=== PATIENT | female | born 2000 | race Asian ===

== ENCOUNTER 2023-10-13 15:01 | Outpatient (CLI) | payer OTHER, SELFPAY ==
--- NOTE | 2023-10-13 15:00 | CRLHL7_ITS ---
For Patients: As a result of the Century Cures Act, medical imaging exams and procedure reports are released immediately into your electronic medical record. You may view this report before your referring provider. If you have questions, please contact your health care provider. INDICATION: First trimester scan, establish dates. COMPARISON: None. TECHNIQUE: Real-time max-scale imaging of the pelvis was performed. FINDINGS: Sonographic imaging demonstrates a single living intrauterine gestation. The embryo demonstrates a regular cardiac rate measuring 171 beats per minute. The embryo`s crown-rump length measurement of 2.2 cm corresponds to a gestational age of 8 weeks 6 days with a sonographic due date of 05/18/2024. There is a normal-appearing yolk sac. There are no gross abnormalities noted within the embryo at this early state of development. The gestational sac has a normal appearance. There is no evidence of a perigestational hemorrhage. The amount of fluid within the sac appears appropriate for gestational age. The cervix is closed. The myometrium appears normal. The ovaries are of normal size. Corpus luteal cyst right ovary. There are no suspicious fluid collections noted in the cul-de-sac. IMPRESSION: Normal first trimester OB ultrasound exam. Gestational age calculated at 8 weeks 6 days with a sonographic due date of 05/18/2024. Dictated by Markie Padilla MD @ 10/14/2023 12:08:11 PM (Electronically Signed)
== END 2023-10-13 15:02 | disposition home or self-care (01) ==
LOC: US 15:02
PROVIDERS: Visit Provider Registered Nurse
DX: Z34.91 Encounter for supervision of normal pregnancy, unspecified, first trimester (principal); Z3A.08 8 weeks gestation of pregnancy
CPT/HCPCS: 76817; 86703; 86706; 86803; 86850; 86900; 86901; 87086; 87340; 87491; 87591

== ENCOUNTER 2023-10-13 16:20 | Outpatient (CLI) | payer OTHER, SELFPAY ==
[2023-10-13 23:40] LABS: Chlamydia DNA Amplified* NOT DETECTED (No Detected); GC DNA Amplified* NOT DETECTED (No Detected)
== END 2023-10-13 16:21 | disposition home or self-care (01) ==
PROVIDERS: Visit Provider Registered Nurse
DX: Z34.91 Encounter for supervision of normal pregnancy, unspecified, first trimester (principal); Z3A.09 9 weeks gestation of pregnancy
CPT/HCPCS: 86592; 86703; 86704; 86706; 86762; 86787; 86803; 86850; 86900; 86901; 87086; 87340; 87491; 87591

== ENCOUNTER 2023-12-09 14:03 | Outpatient (CLI) | payer OTHER, MEDICAID, SELFPAY | END 2023-12-09 14:04 | disposition home or self-care (01) | LOC: FRMREF 14:05 | PROVIDERS: Visit Provider Advanced Practice Midwife | DX: Z34.92 Encounter for supervision of normal pregnancy, unspecified, second trimester (principal); Z3A.17 17 weeks gestation of pregnancy | CPT/HCPCS: 81511 ==

== ENCOUNTER 2024-01-04 12:53 | Outpatient (CLI) | payer MEDICAID, SELFPAY ==
--- NOTE | 2024-01-04 13:00 | US_ITS ---
Final Report Patient: BELINDA NAVARRETE Facility:?[facility] Patient ID:?[id number] Site Patient ID:?[id number]. Site :?[id number] Study:?US OB Pelvis BFAS-01/04/2024 1:55:55 PM Ordering Physician:ROZ MURPHY Final Report: INDICATION: Evaluate anatomy. COMPARISON: none TECHNIQUE: Real time max scale imaging of the fetus was performed as well as color Doppler analysis of the umbilical vessels. FINDINGS: Sonographic imaging demonstrates a single living intrauterine gestation. Fetus demonstrates a regular cardiac rate of 147 beats per minute. Fetus has a longitudinal breech position. The placenta lies left-sided without evidence of placenta previa. The placental edge is located 2.1 cm from the internal cervical os. Amniotic fluid volume appears normal. Single deepest vertical pocket: 5.9 cm. The cervix is closed and measures 4.3 cm in length. The composite ultrasound gestational age is calculated at 20 weeks 5 days with an estimated sonographic due date of 05/18/2024. The estimated weight is 368 grams which lies at the 34th %. The following biometric measurements were obtained: Biparietal diameter: 5.0 cm/21 weeks 1 day 61st% Head circumference: 18.1 cm/20 weeks 4 days 26th% Abdominal circumference: 15.5 cm/20 weeks 5 days 37th% Femur length: 3.4 cm/20 weeks 4 days 32nd% The HC/AC ratio measures: 1.17 range (1.06-1.25) On anatomic survey, there is a normal appearance of the cerebral ventricles, cavum septi pellucidi, cisterna magna and cerebellum. The nose, lips, and facial profile appear normal. The cervical, thoracic and lumbar spine are well visualized and appear normal. There is a normal four-chamber heart view and the left and right ventricular outflow tracts appear normal. The diaphragm and stomach appear normal. The kidneys and bladder also appear normal. There is a normal three-vessel cord and there is a marginal cord insertion site into the placenta located 0.9 cm from the placental edge. The four extremities appear normal. IMPRESSION: Concordant of clinical and sonographic dating. No intrinsic abnormalities noted on anatomic survey. Left-sided placenta is present with the placental edge 2.1 cm from the internal cervical os. Marginal cord insertion into the placenta located 9 millimeters from the placental edge. Dictated by Markie Padilla MD @ 01/05/2024 11:13:57 AM (Electronic Signature)
== END 2024-01-04 12:54 | disposition home or self-care (01) ==
LOC: US 12:54
PROVIDERS: Visit Provider Advanced Practice Midwife
DX: Z34.92 Encounter for supervision of normal pregnancy, unspecified, second trimester (principal); Z3A.20 20 weeks gestation of pregnancy
CPT/HCPCS: 76805

== ENCOUNTER 2024-02-17 14:12 | Outpatient (CLI) | payer MEDICAID, SELFPAY | END 2024-02-17 14:13 | disposition home or self-care (01) | LOC: NFLDREF 02-25 12:20 | PROVIDERS: Visit Provider Advanced Practice Midwife | DX: Z34.93 Encounter for supervision of normal pregnancy, unspecified, third trimester (principal) | CPT/HCPCS: 86592 ==

== ENCOUNTER 2024-03-01 16:23 | Outpatient (CLI) | payer MEDICAID, SELFPAY ==
[2024-03-01] VITALS (14 sets, daily range): BP systolic 94–124; BP diastolic 57–61; PULSE 116–171; RESP 15–18; TEMP 36.6–39.4; O2SAT 97–99
--- NOTE | 2024-03-01 16:52 | US_ITS ---
Patient: BELINDA NAVARRETE Facility:?[facility] Patient ID:?[id number] Site Patient ID:?[id number] Site :?2000 Study:?US-OB Pelvis BPP/OB F/U-03/01/2024 7:29:21 PM Ordering Physician:?Krysten Priest Final Report: INDICATION: Abnormal heart rate COMPARISON: 01/04/2024 TECHNIQUE: Grayscale, color Doppler ultrasound of the gravid uterus and fetus from a transabdominal approach. FINDINGS: Currently provided gestational age: 29 weeks and 0 days Intrauterine gestation in a vertex presentation. heart rate is 161 beats per minute and regular. The four-chamber heart, stomach, and bladder all appear normal. Biparietal diameter: 7.51 centimeters Head circumference: 27.9 centimeters Abdominal circumference: 25.9 centimeters Femur length: 5.6 centimeters Composite ultrasound estimated gestational age is 30 weeks and 0 days. Estimated weight is 1474 grams or 3 pounds and 4 ounces. This corresponds to the 71st percentile for age. There is a marginal cord insertion onto the placenta, 2.5 centimeters from the placental edge. The placenta is posterior. No previa. The placental edge is 4.4 centimeters from the cervix. The amniotic fluid volume is normal. The amniotic fluid index is 14.9 centimeters in a single deepest vertical pocket is 4.2 centimeters. breathin/2 movement: 2/2 tone: 2/2 Amniotic Fluid: 2/2 Biophysical profile score: 8/8 Measured transabdominally the maternal cervix measures 4.3 centimeters. IMPRESSION: 1. Intrauterine gestation. No complication seen. heart rate is 161 beats per minute and appears regular. Growth is concordant with dates. 2. Marginal cord insertion 2.5 centimeters from the placental edge. Resolved low lying placenta. No placenta previa. Dictated by Veronica Gonzalez MD @ 03/01/2024 7:36:36 PM Signed by:Lisa Gonzalez MD @03/01/2024 7:36:36 PM (Electronic Signature)
[2024-03-01 17:06] LABS: Appearance Urine Clear (Clear); Bilirubin Urine Negative (Negative); Blood Urine Trace-intact (Negative); Color Urine Amber (Yellow); Glucose Urine Trace (Negative); Ketones Urine 1+ (Negative); Leukocyte Esterase Urine Negative (Negative); Nitrite Urine Negative (Negative); Protein Urine 1+ (Negative); Specific Gravity Urine >= 1.030 (1.000-1.030); Urobilinogen Urine 0.2 (0.2-1.0)
[2024-03-01 17:17] LABS: RBC Urine 0-2 (0-2)
[2024-03-01 17:18] LABS: Bacteria Urine Moderate; Mucus Urine Many; Squamous Epithelial Cell Urine Few (None-Few)
[2024-03-01] MEDS: LACTATED RINGERS 1000 ML IV (17:40)
[2024-03-01 18:06] LABS: PCR FLU A Negative PCR FLU A (Negative); PCR FLU B Negative PCR FLU B (Negative); PCR RSV Negative PCR RSV (Negative); SARS PCR* Negative SARS-CoV-2 (Negative)
[2024-03-01 18:06] LABS: Basophils Percent Auto 0.1 % (0.0-3.0); Hematocrit 35.7 % (33.0-51.0); Hemoglobin* 10.9 gm/dL (12.0-16.0); Immature Granulocytes Pct Auto 0.3 %; Lymphocytes Percent Auto 5.5 % (20-44); Mean Corpuscular HGB Conc 31 gm/dL (32-36); Mean Corpuscular Hemoglobin 24 pg (26-34); Mean Corpuscular Volume 78 fL (80-100); Monocytes Percent Auto 3.3 % (0.0-11.0); Neutrophils Percent Auto 90.8 % (42.0-72.0); Platelet Count* 225 K/uL (140-440); RDW Coefficient of Variation % 14.9 % (11.5-15.5); Red Blood Count 4.56 m/uL (4.00-5.20); White Blood Count* 15.62 K/uL (4.50-11.00)
[2024-03-01 18:11] LABS: Slide Review Reflex No
[2024-03-01] MEDS: ACETAMINOPHEN 500 MG TABLET 1000 MG PO (18:19)
[2024-03-01 19:06] LABS: Amphetamine Screen Urine Negative (Negative); Barbiturate Screen Urine Negative (Negative); Benzodiazepines Screen Urine Negative (Negative); Cannabinoid Screen Urine Negative (Negative); Cocaine Screen Urine Negative (Negative); Methadone Screen Urine Negative (Negative); Methamphetamines Screen Urine Negative (Negative); Opiate Screen Urine Negative (Negative); Oxycodone Screen Urine Negative (Negative); Phencyclidine Screen Urine Negative (Negative); Tricyclic Antidepressant Urine Negative (Negative)
--- NOTE | 2024-03-01 19:46 | PM.OBHPAP1 ---
OB - H&P; HPI Antepartum History of Present Illness Date Seen: 03/01/24 Chief complaint: Maternity Narrative: Arti Wallis is a 23 year old at 29 0/7 weeks gestation that presents today for sore throat, chills, body aches, and fever. She reports that it started earlier today. She called to triage and they recommended evaluation. She denies any exposure to illness or other family with any at thi time. She denies any cough, SOB, nauesea, vomiting, or diarrhea. She does report a sore throat. She has had minimal to eat/drink today. She reports she had some broth earlier today. On arrival to triage, she was flushed and had a low grade fever. She endorses chills with hot flashes and body aches. She was given 1 L of fluid in triage. She reports she was feeling a little better following this. Tylenol given for documented temperature of 103.0. Specific Issues/Plans G 2 P 1001 Does not want to know sex 1. Closely spaced pregnancies. Vaginal delivery 01/12/2023. 2. Depression and anxiety. Stopped taking sertraline a couple of months ago. Does not desire to restart medication at this time. Feels that her mood is stable despite elevated PHQ and ДМИТРИЙ scores. Continues to see a therapist. Encouraged her to let us know if her mood symptoms are worsening. 3. Marginal cord insertion 0.9 cm from placental edge with placenta along the left wall and 2.1 cm from the internal os at 20 weeks. Repeat US for growth and reassessment of placenta at 28 weeks: ordered for 30 weeks 4. Anemia. Hgb 10.2 at 27 weeks. Portal message sent to start PO iron. Flu: Recommended. Declines Covid: Recommended booster. Patient declines. Review of Systems Const: Reports: fever, chills, fatigue and night sweats ENMT: Reports: throat pain Cardio: Reports: palpitations; Denies: chest pain or shortness of breath with exertion Resp: Denies: shortness of breath or cough GI: Denies: abdominal pain, nausea or vomiting : Denies: blood in urine, difficulty voiding, pelvic pain or vaginal bleeding Musculo: Denies: back pain Endo: Reports: fatigue Meds Home Medications and Allergies Home Medications Medication Instructions Recorded Confirmed Type docosahexaenoic acid 200 mg mg PO 10/13/23 02/17/24 History capsule ( DHA) Allergies Allergy/AdvReac Type Severity Reaction Status Date / Time No Known Drug Allergies Allergy Verified 02/17/24 13:16 OB - H&P: Exam Physical Exam: Vital signs: Temp Pulse Resp BP Pulse Ox 102.7 F H 153 H 15 124/57 L 97 03/01/24 18:59 03/01/24 16:44 03/01/24 16:44 03/01/24 16:44 03/01/24 19:17 Narrative: Vitals Reviewed Constitutional:? Alert and oriented x3. Flushed HEENT:? Normocephalic, atraumatic Neck:? Supple Lungs:? Clear to auscultation bilaterally Heart:? Tachycardia with Regular rhythm, no murmur, rub or gallop Abdomen:? Soft, nontender, and gravid. Extremities:? No edema or erythema NST: 185 bpm/moderate variability/15x15 accelerations/no decelerations/absent contractions BPP: 8/8, reported EFW 70%ile. EKG: Sinus Tachycardia Constitutional: Constitutional: mild distress OB - Results Labs Labs: Short CBC 03/01/24 Range/Units 17:12 WBC 15.62 H (4.50-11.00) K/uL Hgb 10.9 L (12.0-16.0) gm/dL Hct 35.7 (33.0-51.0) % Plt Count 225 (140-440) K/uL Urine 03/01/24 Range/Units 16:46 Urine Color Aria A (Yellow) Urine Appearance Clear (Clear) Urine pH 6.0 (5.0-8.5) Ur Specific Dailey >= 1.030 (1.000-1.030) Urine Protein 1+ A (Negative) Urine Glucose (UA) Trace A (Negative) OB - A/P Antepartum Assessment and Plan (1) Fever of unknown origin: Status: Acute (2) 29 weeks gestation of : Status: Acute (3) Dehydration: Status: Acute (4) Marginal insertion of umbilical cord: Status: Acute (5) Tachycardia: Status: Acute (6) Antepartum tachycardia affecting care of mother: Status: Acute Plan at 29 0/7 weeks gestation Fever of unknown origin Dehydration Marginal cord insertion Maternal Tachycardia with Tachycardia, BPP 8/8. Admit for overnight observation. Discussed plan of care with Dr. Mims. Reviewed laboratory testing, EKG, BPP, and NST. Discussed recommendation of observation until morning with IV fluids and Tylenol overnight. Dr. Mims agrees with plan. NST at midnight, if FHR is elevated but reassuring, do another NST in am. Call with otherwise abnormal NST findings. CBC to repeat at midnight. CMP labs pending. Will call abnormal results to Dr. Mims. Flu/Covid/RSV and Strep lab all negative. Monitor vitals per protocol, every 4 hours. IV fluids, LR, 125 ml per hour. Bolus of 1,500 given in triage. Will review patient status in am, goal of discharge after rehydration and control of fever.
[2024-03-01 19:48] LABS: Strep A DNA Probe* NOT DETECTED (Not Detectd)
[2024-03-01] MEDS: LACTATED RINGERS 1000 ML 1,000 ML 125 ML IV ×2 (20:23→23:38)
[2024-03-01 20:36] LABS: Albumin* 3.3 g/dL (3.3-5.0); Chloride* 110 mmol/L (96-114); Potassium* 3.7 mmol/L (3.6-5.1); Sodium* 135 mmol/L (135-149)
[2024-03-01 20:38] LABS: Creatinine* 0.4 mg/dL (0.5-1.5); Estimated Glomerular Filt Rate 143 ml/min
[2024-03-01 20:39] LABS: Alanine Aminotransferase* 13 U/L (4-35); Alkaline Phosphatase* 102 U/L (40-150); Anion Gap 5 mEq/L (7-15); Aspartate Amino Transferase* 19 U/L (12-35); Bilirubin Total* 0.4 mg/dL (0.1-1.5); Blood Urea Nitrogen* 5 mg/dL (5-24); Carbon Dioxide* 20 mmol/L (20-32); Glucose* 86 mg/dL (60-115); Total Protein* 6.8 g/dL (6.0-8.3)
[2024-03-01 20:40] LABS: Calcium* 8.4 mg/dL (8.4-10.6)
[2024-03-02] VITALS (76 sets, daily range): BP systolic 65–109; BP diastolic 37–65; PULSE 77–120; RESP 16–18; TEMP 35.6–37.3; O2SAT 90–100
[2024-03-02] MEDS: ACETAMINOPHEN 500 MG TABLET 1000 MG PO ×2 (00:06→15:05)
[2024-03-02 01:06] LABS: Basophils Percent Auto 0.1 % (0.0-3.0); Hematocrit 28.7 % (33.0-51.0); Hemoglobin* 8.8 gm/dL (12.0-16.0); Immature Granulocytes Pct Auto 0.7 %; Lymphocytes Percent Auto 6.2 % (20-44); Mean Corpuscular HGB Conc 31 gm/dL (32-36); Mean Corpuscular Hemoglobin 24 pg (26-34); Mean Corpuscular Volume 79 fL (80-100); Monocytes Percent Auto 6.5 % (0.0-11.0); Neutrophils Percent Auto 86.5 % (42.0-72.0); Platelet Count* 190 K/uL (140-440); RDW Coefficient of Variation % 15.1 % (11.5-15.5); Red Blood Count 3.64 m/uL (4.00-5.20); White Blood Count* 22.65 K/uL (4.50-11.00)
[2024-03-02 01:09] LABS: Slide Review Reflex No
--- NOTE | 2024-03-02 07:08 | PC.OBNST ---
NST Note NST Note Start: 03/01/24 16:27 Freq: ONCE Status: Active Protocol: Document 03/02/24 00:26 [facility] (Rec: 03/02/24 07:08 [facility] [id number]) NST Note 2 Para (# of births) 1 EDC 05/17/24 Gestational Age In Weeks & Days 29 Weeks & 1 Days Patient Presented with Complaint(s) of Other Other Complaints Fever, chills, body aches, sore throat Reactive Yes Appropriate for Gestational Age Yes MARIOLA Marin, RN Date 03/02/24 Reactive Yes Appropriate for Gestational Age Yes MARIOLA Ballesteros RN Date 03/02/24 OB NST charge Yes Complete NST Note via Write Note Yes The provider's electronic signature indicates the NST is reactive/appropriate for gestational age. *Note to provider: If an addendum is required, open the patient's chart and click on the note under the Nurse/Allied Health tab.
--- NOTE | 2024-03-02 07:50 | XR_ITS ---
Patient: BELINDA NAVARRETE Facility:?[facility] Patient ID:?[id number] Site Patient ID:?[id number]. Site :?2000 Study:?XRay-Chest 2 view-03/02/2024 9:18:29 AM Ordering Physician:?Lina Calero Final Report: Indication: Leukocytosis and fever of unknown origin. Technique: Chest 2 views Comparison: None Findings/Impression: Cardiovascular and mediastinum: Heart size and vasculature are normal in caliber and appearance. Mediastinum is within normal limits. Lungs and pleural spaces: Lungs are clear. No sign of infiltrate or mass. No sign of pleural effusion. No pneumothorax. Bones and soft tissues: No significant findings. Dictated by Florentin Deal MD @ 03/02/2024 9:22:01 AM Signed by:?Florentin Deal MD @03/02/2024 9:22:01 AM (Electronic Signature)
[2024-03-02 08:05] LABS: Basophils Percent Auto 0.1 % (0.0-3.0); Hematocrit 29.3 % (33.0-51.0); Hemoglobin* 8.9 gm/dL (12.0-16.0); Immature Granulocytes Pct Auto 0.6 %; Mean Corpuscular HGB Conc 30 gm/dL (32-36); Mean Corpuscular Hemoglobin 24 pg (26-34); Mean Corpuscular Volume 79 fL (80-100); Monocytes Percent Auto 4.2 % (0.0-11.0); Neutrophils Percent Auto 87.1 % (42.0-72.0); Platelet Count* 192 K/uL (140-440); RDW Coefficient of Variation % 15.2 % (11.5-15.5); Red Blood Count 3.69 m/uL (4.00-5.20); White Blood Count* 21.22 K/uL (4.50-11.00)
[2024-03-02 08:17] LABS: Slide Review Reflex No
[2024-03-02 08:21] LABS: Albumin* 2.9 g/dL (3.3-5.0); Chloride* 106 mmol/L (96-114); Sodium* 136 mmol/L (135-149)
[2024-03-02 08:22] LABS: Potassium* 3.2 mmol/L (3.6-5.1)
[2024-03-02 08:24] LABS: Alanine Aminotransferase* 11 U/L (4-35); Alkaline Phosphatase* 88 U/L (40-150); Anion Gap 7 mEq/L (7-15); Aspartate Amino Transferase* 17 U/L (12-35); Bilirubin Total* 0.3 mg/dL (0.1-1.5); Blood Urea Nitrogen* 3 mg/dL (5-24); Calcium* 8.5 mg/dL (8.4-10.6); Carbon Dioxide* 23 mmol/L (20-32); Creatinine* 0.3 mg/dL (0.5-1.5); Estimated Glomerular Filt Rate 153 ml/min; Glucose* 91 mg/dL (60-115); Total Protein* 6.3 g/dL (6.0-8.3)
--- NOTE | 2024-03-02 09:30 | US_ITS ---
Patient: BELINDA NAVARRETE Facility:?[facility] Patient ID:?[id number] Site Patient ID:?[id number]. Site :?2000 Study:?US-Abdomen Abdomen Complete-03/02/2024 11:42:14 AM Ordering Physician:?Krysten Priest Final Report: INDICATION: Leukocytosis, TECHNIQUE: Ultrasound abdomen complete. Sonographic images of the entire abdomen were obtained using max-scale and color Doppler. COMPARISON: None. FINDINGS: Liver: Normal in size and echotexture. No masses. No intrahepatic biliary dilatation. Gallbladder: No stones or sludge. Normal wall thickness. No pericholecystic fluid. Common bile duct: 4 mm. Pancreas: Partially obscured by bowel gas without discrete abnormality. Spleen: Upper normal size, likely secondary to . No focal lesions. Kidneys: Mild maternal right hydronephrosis. Left kidney unremarkable. Vasculature: Proximal abdominal aorta and IVC are normal in caliber. Scanning in the right lower quadrant shows only shadowing bowel gas. IMPRESSION: 1. Appendix not seen. Only shadowing bowel gas identified in the right lower quadrant. 2. Mild maternal right hydronephrosis, likely secondary to . 3. Otherwise unremarkable abdominal ultrasound. Dictated by Florentin Deal MD @ 03/02/2024 11:57:51 AM Signed by:?Florentin Deal MD @03/02/2024 11:57:51 AM (Electronic Signature)
--- NOTE | 2024-03-02 09:30 | US_ITS ---
Patient: BELINDA NAVARRETE Facility:?[facility] Patient ID:?[id number] Site Patient ID:?[id number]. Site :?2000 Study:?US-OB Pelvis OB F/U-03/02/2024 11:39:20 AM Ordering Physician:?Krysten Priest Final Report: INDICATION: Leukocytosis, possible abruption TECHNIQUE: Ultrasound OB pelvis transabdominal. Real-time max-scale imaging of the fetus was performed with static images saved for review. COMPARISON: Obstetric ultrasound 03/01/2024 FINDINGS: Clinical Age: 29 weeks 1 day (ROMY 05/17/2024) Single live intrauterine gestation in vertex position with a heart rate of 125 beats per minute. Posterior placenta without perigestational bleed. Amniotic fluid is normal with a maximum vertical pocket of 4.2 centimeters. No placenta previa seen. IMPRESSION: 1. Single live intrauterine gestation with a clinical age of 29 weeks 1 day in vertex position. 2. Posterior placenta without placenta previa or perigestational bleed. 3. Normal amniotic fluid. Dictated by Florentin Deal MD @ 03/02/2024 11:54:46 AM Signed by:?Florentin Deal MD @03/02/2024 11:54:46 AM (Electronic Signature)
[2024-03-02 10:28] LABS: Clue Cells No Clue Cells Seen (None Seen); Trichomonas No Trichomonas Seen (None Seen); Yeast No Yeast Seen (None Seen)
--- NOTE | 2024-03-02 10:28 | P.OBPN_ITS ---
Subjective Time Seen by Provider: 09:10 Date Seen: 03/02/24 Narrative: Delayed documentation due to patient care and patient being off the floor intermittently for imaging studies. Arti is a 23-year-old at 29 weeks 1 day gestation admitted for fever and myalgias history thing. Please see Dr. Priest and Veronica Trejo' admission note for complete details. Briefly, patient has been experiencing intermittent fevers chills at home since the evening of 02/28/24. She notes associated myalgia, runny nose and intermittent headache. She additionally noted intermittent low abdominal cramping that resolved prior to presentation to triage. None of these were particularly concerning to her, and would not typically have prompted her to present to care. She spiked a fever the evening of 03/01 to Tmax of 103. She had significant maternal and tachycardia, VS were otherwise WNL. Fever responded to tylenol and IVF hydration, where maternal tachycardia resolved. WBC was noted to be elevated to 15 with neutrophil predominance. Flu, COVID, RSV, strep all negative. UA showed contamination but was not concerning for UTI. US was unremarkable, 8/8 BPP. She noted feeling subjectively much improved overnight. Repeat labs demonstrated worsening leukocytosis with a downtrending Hgb, where she was reassess by Dr. Priest and decision was made to proceed with abdominal US to rule out appendicitis, cholecystitis and to reassess placenta to rule out concealed abruption. NST at 0000 was appropriate for GA with resolution of tachycardia. This morning, Arti is feeling much better. She denies any ongoing fevers/chills, rigors or myalgias. She notes no abdominal pain, cramping or contractions, vaginal bleeding or leaking of fluids. Endorses active movement. No headache, sore throat, neck stiffness, dizziness/lightheadedness, fevers/chills, chest pain, dyspnea, cough, nausea, vomiting, diarrhea, constipation, dysuria, urinary urgency/frequency, abnormal vaginal discharge, abdominal pain or tenderness, contractions, vaginal bleeding, or leaking of fluids today. Objective Exam: General: Alert and oriented, in no acute distress. Resting in hospital bed. Heart: Regular rate and rhythm, no rubs murmurs or gallops Lungs: Clear to posterior auscultation throughout, no wheezes, rales or crackles Abdomen: Gravid. Otherwise soft and nondistended. Uterus palpates soft, no fundal tenderness. No tenderness to palpation throughout all 4 abdominal quadrants, no rebound or guarding. Pelvic: External genital exam within normal limits. Perineum dry. Speculum inserted, vaginal mucosa is pale pink and cervix appears unremarkable and closed. Moderate volume of thin, opaque white discharge noted consistent with physiologic discharge of . No purulence or malodor appreciated. Wet prep specimen obtained. Bimanual exam performed, no cervical motion tenderness, uterine tenderness or adnexal tenderness. heart rate: Baseline 110bpm, moderate variability, 10x10 accels present with no decelerations. Continue continuous monitoring. Vital Signs: Last Vital Signs Temp 96.4 F L 03/02/24 07:58 Pulse 80 03/02/24 07:49 Resp 18 03/02/24 07:58 BP 93/50 L 03/02/24 07:49 Pulse Ox 100 03/02/24 09:43 Plan Plan: Ms. Wallis is a 23yo at 29w1d GA ongoing evaluation of fever of unknown origin. Infectious testing to present has been negative. VS notable for Tmax of 103 yesterday evening, with new hypothermia to 96.0 degrees since 0300. Stat repeat CBC with diff and CMP are stable - with WBC of 21, neutrophil predominance, stable Hgb and normal Cr/LFTs. Infectious evaluation to present has been negative. This includes: RSV, COVID, Flu, strep testing, UA via clean catch and Ob US. Plan to proceed with chest x- ray repeat UA/UC via catheterized specimen this morning. She is scheduled to go down for abdominal US and repeat Ob US this morning. Of note, my clinical suspicion for chorioamnionitis is very low. She has absolutely no abdominal pain or tenderness. Speculum exam performed, wet prep pending. No cervical motion, uterine or adnexal tenderness to palpation. No signs/symptoms of acute abdomen. Continuous monitoring is ongoing. Disposition is to remain inpatient. Plan to discuss case further with MFM (via [facility] for U line) pending results.
[2024-03-02] MEDS: LACTATED RINGERS 1000 ML 1,000 ML IV (12:14)
[2024-03-02] MEDS: PIPERACILLIN/TAZOBACTAM 3.375 GM in 0.9 % SODIUM CHLORIDE Mini-bag 100 ML IVPB (12:45)
[2024-03-02 12:53] LABS: Lab Add On Test New Spec Needed
[2024-03-02 13:02] LABS: Appearance Urine Clear (Clear); Bilirubin Urine Negative (Negative); Blood Urine Negative (Negative); Color Urine Yellow (Yellow); Glucose Urine Negative (Negative); Ketones Urine 4+ (Negative); Leukocyte Esterase Urine Negative (Negative); Nitrite Urine Negative (Negative); Protein Urine Negative (Negative); Urobilinogen Urine 0.2 (0.2-1.0)
[2024-03-02 13:16] LABS: RBC Urine 0-2 (0-2)
--- NOTE | 2024-03-02 13:18 | P.OBPN_ITS ---
Subjective Time Seen by Provider: 11:40 Date Seen: 03/02/24 Narrative: Delayed documentation due to patient care. Ms. Wallis is a 23yo at 29w1d GA ongoing evaluation of fever of unknown origin. Infectious testing to present has been negative. VS notable for Tmax of 103 yesterday evening, with new hypothermia to 96.0 degrees since 0300. Stat repeat CBC with diff and CMP are stable - with WBC of 21, neutrophil predominance, stable Hgb and normal Cr/LFTs. After arriving back to the unit from radiology, repeat VS demonstrate new hypotension. This was repeated stat by bedside RN and confirmed. I presented emergently to the bedside. Verbal orders for stat bolus of 2 L of LR given, plan to start zosyn for empiric treatment of sepsis. Blood and urine cultures were obtained this morning, prior to initiation of antibiotics. On arrival, Arti continues to feel well. She denies dizziness/lightheadedness, nausea/vomiting, chest pain, dyspnea, fevers/chills. Comprehensive ROS completed and all remains negative. Expressed my concern for evolving sepsis of an unclear source. Plan to proceed with Hospitalist consultation to see if they can elicit any potential unexplored sources. In addition, I explained plan to transfer Arti to a higher level of care for potential maternal ICU and NICU care. Explained we first must stabilize her blood pressure, but that we will start to initiate this process. Objective Exam: General: Alert and oriented, seen lying back in hospital bed. Abdomen: Gravid. Otherwise soft, non-tender and non-distended. No rebound or guarding. Extremities: Cool feet, distal extremities are otherwise pink and well perfused. NST: status is reassuring for GA. Baseline is 130bpm, moderate variability, accelerations present and no decelerations. Vital Signs: Last Vital Signs Temp 98.4 F 03/02/24 13:15 Pulse 94 03/02/24 13:10 Resp 18 03/02/24 13:15 BP 82/43 L 03/02/24 13:10 Pulse Ox 100 03/02/24 13:16 Plan Plan: Ms. Wallis is a 23yo at 29w1d GA admitted for fever of unknown origin with worsening maternal condition consistent with sepsis. Infectious testing to present has been negative, blood cultures and urine cultures pending. CXR and abdominal US are negative for apparent infectious pathology, appendix was not visualized. - Fluid resuscitation with 2L of LR bolus is ongoing, zosyn initiated for broad spectrum antibiotic coverage. Vancomycin was considered for MRSA coverage, mutually agreed to hold off given low suspicion after consultation with hospitalist. - Plan to continue BP checks q5m until we achieve a MAP goal of >=65mmHg. If she fails to respond to fluid bolus, plan is to initiate norepinephrine infusion with Dr. Arreola co-managing given need for critical care support. - Continuous monitoring ongoing and is fortunately reassuring - s/p BMZ #1 - Plan to start process of transfer to a facility with ICU and NICU capabilities. Ultimately, [facility] and [facility] were contacted and unable to accept due to critical patient status and NICU capacity respectively. [facility] was contacted and accepted transfer. Please see subsequent transfer note.
[2024-03-02 13:19] LABS: Lactate* 1.8 mmol/L (0.5-1.9)
[2024-03-02] MEDS: LACTATED RINGERS 1000 ML 1,000 ML 1200 ML IV (13:20)
[2024-03-02 13:21] LABS: Squamous Epithelial Cell Urine Few (None-Few)
[2024-03-02 13:22] LABS: Mucus Urine Few
[2024-03-02] MEDS: BETAMETHASONE SOD PHOS/ACETATE 6 MG/ML ML 12 MG IM (13:56)
--- NOTE | 2024-03-02 14:27 | W.PM.OBTRAN ---
History of Present Illness History of Present Illness Time Seen by Provider: 14:47 Date Seen: 03/02/24 History of Present Illness: Delayed documentation due to patient care. Arti Wallis is a 23-year-old at 29 weeks 1 day gestation admitted for fever and myalgias. Please see Dr. Priest and Veronica Trejo' ([facility]) admission note for complete details. is complicated by anemia (Hgb 10.2), marginal cord insertion and maternal mood disorder (depression/anxiety). She has a history of anemia, on oral iron. Briefly, patient has been experiencing intermittent fevers chills at home since the evening of 02/28/24. She notes associated myalgia, runny nose and dry throat. She additionally noted intermittent low abdominal cramping on 02/28, resolved prior to presentation to care. None of these were particularly concerning to her, and would not typically have prompted her to present to care. She called nurse triage yesterday afternoon, reporting subjective fever and rigors. She took Tylenol prior to presentation. On arrival, she was normotensive but tachycardic to the 150s. tachycardia was noted to with baseline of 180 beats per minute with moderate variability and no decelerations. During her evaluation, she spiked a fever to 103? F at 1819. Fever broke with IV fluids and Tylenol, where maternal tachycardia resolved. UA was obtained, notable for contamination but negative for white blood cells. Her white blood cell count was noted to be 15.6 with a neutrophil predominant, remainder of labs were within normal limits. OB ultrasound was obtained, with EFW [id number] at the 73%ile. 8/8 BPP. Patient noted subjective improvement of symptoms and was monitored overnight. Repeat NST at approximately midnight showed baseline of 120 beats per minute, moderate variability, accelerations present decelerations absent. Repeat white blood cell count at that time showed a significant rise to 22.6 (19.6 neutrophils) with a downtrending hemoglobin of 8.8 (from 10.9, thought to be dilutional). She had intermittent maternal tachycardia overnight. Starting at about 0300, she had new hypothermia with several temperatures of 96?F. She had mild hypotension without tachycardia at time of my rounding - 93/50mmHg and 80bpm respectively. Patient was well-appearing, and from the above history. She specifically denies any headache, sore throat, neck stiffness, dizziness/lightheadedness, fevers/chills, chest pain, dyspnea, cough, nausea, vomiting, diarrhea, constipation, dysuria, urinary urgency/frequency, abnormal vaginal discharge, abdominal pain or tenderness, contractions, vaginal bleeding, or leaking of fluids today. Review of systems for the last few days are negative except as noted above. She endorses active movement. Plan established overnight was to proceed with repeat OB ultrasound to rule out a concealed abruption, and abdominal ultrasound. These were subsequently found to be normal. I obtained a chest x-ray, repeat UA/UC via straight catheter and blood cultures to continue infectious workup. I completed a thorough physical exam, noted below but was entirely within normal limits. I put her on continuous monitoring, and this time her baseline was 110 beats per minute with moderate variability and 10 x 10 accelerations present with no decelerations. At 1138 she returned from an imaging study, where blood pressure was noted to be 65/41 with a recheck of 73/49. Patient was noted to be mentating appropriately, with no dizziness/lightheadedness, fevers or chills. Repeat physical exam was performed and was within normal limits. We considered a very broad infectious differential, importantly with no evidence of chorioamnionitis on my exam. 2 L of IV LR were infused as a bolus, Zosyn was started for empiric management of sepsis. Hospitalist was consulted for further evaluation of potential source. We developed a plan for norepinephrine infusion for a goal MAP >= 65. Continuos monitoring was ongoing and entirely reassuring - baseline 130bpm with moderate variability, accelerations present and decelerations absent. She was administered betamethasone at approximately 1330. I called several facilities to facilitate transfer of care for potential maternal ICU availability and NICU capacity. Ultimately, [facility] in [place] accepted her transfer. We mutually agreed to withhold magnesium sulfate for neuro protection given tenuous maternal condition. We discussed a goal map of greater than or equal to 65 in route, plan to start norepinephrine infusion if needed. Flight crew will notify [facility] and our facility if this is required. Meds Home Medications and Allergies Home Medications Medication Instructions Recorded Confirmed Type docosahexaenoic acid 200 mg mg PO 10/13/23 02/17/24 History capsule ( DHA) Allergies Allergy/AdvReac Type Severity Reaction Status Date / Time No Known Drug Allergies Allergy Verified 02/17/24 13:16 [facility] Medical History (Updated 03/02/24 @ 14:50 by Lina Calero MD) Hx of iron deficiency anemia ?Z86.2 - Personal history of diseases of the blood and blood-forming organs and certain disorders involving the immune mechanism (ICD-10) Anemia ?D64.9 - Anemia, unspecified (ICD-10) Vaginal delivery ?O80 - Encounter for full-term uncomplicated delivery (ICD-10) Social History Smoking Status: Never smoker Little interest or pleasure in doing things: more than half the days Feeling down, depressed, or hopeless: more than half the days History History 2 Elective abortions Para 1 Spontaneous abortions Hx # Term Pregnancies 1 Ectopic pregnancies Hx # Pregnancies Multiple births Number of Living Children 0 Past Pregnancies Del. Date GA/Weeks Outcome Route wt Inf Gender Labor Lgth Anesthesia Location Provider Compli 01/12/23 40 live - full term vaginal delivery 7 lb 9 oz Female 9 hrs epidural [facility] Delivery Date: 01/12/23 Last Updated by: Kayla García ~ [employer] CLERK, [employer] [facility]+ and [facility] - H&P: Exam Physical Exam Vital signs: Temp Pulse Resp BP Pulse Ox 98.4 F 115 H 18 104/58 L 100 03/02/24 13:15 03/02/24 14:22 03/02/24 13:15 03/02/24 14:22 03/02/24 14:24 Narrative: General: Alert and oriented, in no acute distress. Seen reclining in hospital bed, flushed cheeks. Neck: No nuchal rigidity Heart: Regular rate and rhythm, no rubs murmurs or gallops Lungs: Clear to posterior auscultation throughout, no wheezes, rales or crackles Abdomen: Gravid. Otherwise soft and nondistended. Uterus palpates soft, no fundal tenderness. No tenderness to palpation throughout all 4 abdominal quadrants, no rebound or guarding. Pelvic: External genital exam within normal limits. Perineum dry. Speculum inserted, vaginal mucosa is pale pink and cervix appears unremarkable and closed. Moderate volume of thin, opaque white discharge noted consistent with physiologic discharge of . No purulence or malodor appreciated. Wet prep specimen obtained. Bimanual exam performed, no cervical motion tenderness, uterine tenderness or adnexal tenderness. Results Labs Laboratory Tests 03/02/24 03/02/24 03/02/24 Range/Units 13:14 12:50 12:40 WBC (4.50-11.00) K/uL RBC (4.00-5.20) m/uL Hgb (12.0-16.0) gm/dL Hct (33.0-51.0) % MCV (80-100) fL MCH (26-34) pg MCHC (32-36) gm/dL RDW Coeff of Sathya (11.5-15.5) % Plt Count (140-440) K/uL Neut % (Auto) (42.0-72.0) % Lymph % (Auto) (20-44) % [place] % (Auto) (0.0-11.0) % Eos % (Auto) (0.0-7.0) % Baso % (Auto) (0.0-3.0) % Neut # (Auto) (1.7-7.0) K/uL Lymph # (Auto) (0.90-2.90) K/uL [place] # (Auto) (0.00-0.90) K/UL Eos # (Auto) (0.00-0.50) K/uL Baso # (Auto) (0.00-0.30) K/uL Abs Immat Gran (auto) (0.00-0.30) K/uL Imm/Tot Granulo (auto) % Sodium (135-149) mmol/L Potassium (3.6-5.1) mmol/L Chloride (96-114) mmol/L Carbon Dioxide (20-32) mmol/L Anion Gap (7-15) mEq/L BUN (5-24) mg/dL Creatinine (0.5-1.5) mg/dL Estimated GFR ml/min Glucose (60-115) mg/dL Lactate 1.8 (0.5-1.9) mmol/L Calcium (8.4-10.6) mg/dL Total Bilirubin (0.1-1.5) mg/dL AST (12-35) U/L ALT (4-35) U/L Alkaline Phosphatase (40-150) U/L Total Protein (6.0-8.3) g/dL Albumin (3.3-5.0) g/dL Urine Color Yellow (Yellow) Urine Appearance Clear (Clear) Urine pH 6.0 (5.0-8.5) Ur Specific [place] 1.020 (1.000-1.030) Urine Protein Negative (Negative) Urine Glucose (UA) Negative (Negative) Urine Ketones 4+ A (Negative) Urine Blood Negative (Negative) Urine Nitrite Negative (Negative) Urine Bilirubin Negative (Negative) Urine Urobilinogen 0.2 (0.2-1.0) Ur Leukocyte Esterase Negative (Negative) Urine RBC 0-2 (0-2) Urine WBC 5-10 A (0-5) Ur Squamous Epith Cells Few (None-Few) Urine Bacteria None (None) Urine Mucus Few A (None) Vaginal Trichomonas (None Seen) Vaginal Yeast (None Seen) Vaginal Clue Cells (None Seen) Urine Opiates Screen (Negative) Ur Oxycodone Screen (Negative) Urine Methadone Screen (Negative) Ur Barbiturates Screen (Negative) U Tricyclic Antidepress (Negative) Ur Phencyclidine Scrn (Negative) Ur Amphetamines Screen (Negative) U Methamphetamines Scrn (Negative) U Benzodiazepines Scrn (Negative) Urine Cocaine Screen (Negative) U Marijuana (THC) Screen (Negative) Ur Drug Screen Comment SARS-CoV-2 (PCR) (Negative) Influenza Type A (PCR) (Negative) Influenza Type B (PCR) (Negative) RSV (PCR) (Negative) Group A Strep DNA (Not Detectd) Lab Acknowledgement New Spec Needed 03/02/24 03/02/24 03/02/24 Range/Units 10:07 07:58 00:50 WBC 21.22 H 22.65 H (4.50-11.00) K/uL RBC 3.69 L 3.64 L (4.00-5.20) m/uL Hgb 8.9 L 8.8 L (12.0-16.0) gm/dL Hct 29.3 L 28.7 L (33.0-51.0) % MCV 79 L 79 L (80-100) fL MCH 24 L 24 L (26-34) pg MCHC 30 L 31 L (32-36) gm/dL RDW Coeff of Sathya 15.2 15.1 (11.5-15.5) % Plt Count 192 190 (140-440) K/uL Neut % (Auto) 87.1 H 86.5 H (42.0-72.0) % Lymph % (Auto) 8.0 L 6.2 L (20-44) % [place] % (Auto) 4.2 6.5 (0.0-11.0) % Eos % (Auto) 0.0 0.0 (0.0-7.0) % Baso % (Auto) 0.1 0.1 (0.0-3.0) % Neut # (Auto) 18.50 H 19.60 H (1.7-7.0) K/uL Lymph # (Auto) 1.70 1.40 (0.90-2.90) K/uL [place] # (Auto) 0.90 1.50 H (0.00-0.90) K/UL Eos # (Auto) 0.00 0.00 (0.00-0.50) K/uL Baso # (Auto) 0.00 0.00 (0.00-0.30) K/uL Abs Immat Gran (auto) 0.10 0.20 (0.00-0.30) K/uL Imm/Tot Granulo (auto) 0.6 0.7 % Sodium 136 (135-149) mmol/L Potassium 3.2 L (3.6-5.1) mmol/L Chloride 106 (96-114) mmol/L Carbon Dioxide 23 (20-32) mmol/L Anion Gap 7 (7-15) mEq/L BUN 3 L (5-24) mg/dL Creatinine 0.3 L (0.5-1.5) mg/dL Estimated GFR 153 ml/min Glucose 91 (60-115) mg/dL Lactate (0.5-1.9) mmol/L Calcium 8.5 (8.4-10.6) mg/dL Total Bilirubin 0.3 (0.1-1.5) mg/dL AST 17 (12-35) U/L ALT 11 (4-35) U/L Alkaline Phosphatase 88 (40-150) U/L Total Protein 6.3 (6.0-8.3) g/dL Albumin 2.9 L (3.3-5.0) g/dL Urine Color (Yellow) Urine Appearance (Clear) Urine pH (5.0-8.5) Ur Specific [place] (1.000-1.030) Urine Protein (Negative) Urine Glucose (UA) (Negative) Urine Ketones (Negative) Urine Blood (Negative) Urine Nitrite (Negative) Urine Bilirubin (Negative) Urine Urobilinogen (0.2-1.0) Ur Leukocyte Esterase (Negative) Urine RBC (0-2) Urine WBC (0-5) Ur Squamous Epith Cells (None-Few) Urine Bacteria (None) Urine Mucus (None) Vaginal Trichomonas No Trichomonas Seen (None Seen) Vaginal Yeast No Yeast Seen (None Seen) Vaginal Clue Cells No Clue Cells Seen (None Seen) Urine Opiates Screen (Negative) Ur Oxycodone Screen (Negative) Urine Methadone Screen (Negative) Ur Barbiturates Screen (Negative) U Tricyclic Antidepress (Negative) Ur Phencyclidine Scrn (Negative) Ur Amphetamines Screen (Negative) U Methamphetamines Scrn (Negative) U Benzodiazepines Scrn (Negative) Urine Cocaine Screen (Negative) U Marijuana (THC) Screen (Negative) Ur Drug Screen Comment SARS-CoV-2 (PCR) (Negative) Influenza Type A (PCR) (Negative) Influenza Type B (PCR) (Negative) RSV (PCR) (Negative) Group A Strep DNA (Not Detectd) Lab Acknowledgement 03/01/24 03/01/24 03/01/24 Range/Units 19:00 18:26 17:21 WBC (4.50-11.00) K/uL RBC (4.00-5.20) m/uL Hgb (12.0-16.0) gm/dL Hct (33.0-51.0) % MCV (80-100) fL MCH (26-34) pg MCHC (32-36) gm/dL RDW Coeff of Sathya (11.5-15.5) % Plt Count (140-440) K/uL Neut % (Auto) (42.0-72.0) % Lymph % (Auto) (20-44) % [place] % (Auto) (0.0-11.0) % Eos % (Auto) (0.0-7.0) % Baso % (Auto) (0.0-3.0) % Neut # (Auto) (1.7-7.0) K/uL Lymph # (Auto) (0.90-2.90) K/uL [place] # (Auto) (0.00-0.90) K/UL Eos # (Auto) (0.00-0.50) K/uL Baso # (Auto) (0.00-0.30) K/uL Abs Immat Gran (auto) (0.00-0.30) K/uL Imm/Tot Granulo (auto) % Sodium (135-149) mmol/L Potassium (3.6-5.1) mmol/L Chloride (96-114) mmol/L Carbon Dioxide (20-32) mmol/L Anion Gap (7-15) mEq/L BUN (5-24) mg/dL Creatinine (0.5-1.5) mg/dL Estimated GFR ml/min Glucose (60-115) mg/dL Lactate (0.5-1.9) mmol/L Calcium (8.4-10.6) mg/dL Total Bilirubin (0.1-1.5) mg/dL AST (12-35) U/L ALT (4-35) U/L Alkaline Phosphatase (40-150) U/L Total Protein (6.0-8.3) g/dL Albumin (3.3-5.0) g/dL Urine Color (Yellow) Urine Appearance (Clear) Urine pH (5.0-8.5) Ur Specific [place] (1.000-1.030) Urine Protein (Negative) Urine Glucose (UA) (Negative) Urine Ketones (Negative) Urine Blood (Negative) Urine Nitrite (Negative) Urine Bilirubin (Negative) Urine Urobilinogen (0.2-1.0) Ur Leukocyte Esterase (Negative) Urine RBC (0-2) Urine WBC (0-5) Ur Squamous Epith Cells (None-Few) Urine Bacteria (None) Urine Mucus (None) Vaginal Trichomonas (None Seen) Vaginal Yeast (None Seen) Vaginal Clue Cells (None Seen) Urine Opiates Screen Negative (Negative) Ur Oxycodone Screen Negative (Negative) Urine Methadone Screen Negative (Negative) Ur Barbiturates Screen Negative (Negative) U Tricyclic Antidepress Negative (Negative) Ur Phencyclidine Scrn Negative (Negative) Ur Amphetamines Screen Negative (Negative) U Methamphetamines Scrn Negative (Negative) U Benzodiazepines Scrn Negative (Negative) Urine Cocaine Screen Negative (Negative) U Marijuana (THC) Screen Negative (Negative) Ur Drug Screen Comment See Note SARS-CoV-2 (PCR) Negative SARS-CoV-2 (Negative) Influenza Type A (PCR) Negative PCR FLU A (Negative) Influenza Type B (PCR) Negative PCR FLU B (Negative) RSV (PCR) Negative PCR RSV (Negative) Group A Strep DNA NOT DETECTED (Not Detectd) Lab Acknowledgement 03/01/24 03/01/24 Range/Units 17:12 16:46 WBC 15.62 H (4.50-11.00) K/uL RBC 4.56 (4.00-5.20) m/uL Hgb 10.9 L (12.0-16.0) gm/dL Hct 35.7 (33.0-51.0) % MCV 78 L (80-100) fL MCH 24 L (26-34) pg MCHC 31 L (32-36) gm/dL RDW Coeff of Sathya 14.9 (11.5-15.5) % Plt Count 225 (140-440) K/uL Neut % (Auto) 90.8 H (42.0-72.0) % Lymph % (Auto) 5.5 L (20-44) % [place] % (Auto) 3.3 (0.0-11.0) % Eos % (Auto) 0.0 (0.0-7.0) % Baso % (Auto) 0.1 (0.0-3.0) % Neut # (Auto) 14.20 H (1.7-7.0) K/uL Lymph # (Auto) 0.90 (0.90-2.90) K/uL [place] # (Auto) 0.50 (0.00-0.90) K/UL Eos # (Auto) 0.00 (0.00-0.50) K/uL Baso # (Auto) 0.00 (0.00-0.30) K/uL Abs Immat Gran (auto) 0.00 (0.00-0.30) K/uL Imm/Tot Granulo (auto) 0.3 % Sodium 135 (135-149) mmol/L Potassium 3.7 (3.6-5.1) mmol/L Chloride 110 (96-114) mmol/L Carbon Dioxide 20 (20-32) mmol/L Anion Gap 5 L (7-15) mEq/L BUN 5 (5-24) mg/dL Creatinine 0.4 L (0.5-1.5) mg/dL Estimated GFR 143 ml/min Glucose 86 (60-115) mg/dL Lactate (0.5-1.9) mmol/L Calcium 8.4 (8.4-10.6) mg/dL Total Bilirubin 0.4 (0.1-1.5) mg/dL AST 19 (12-35) U/L ALT 13 (4-35) U/L Alkaline Phosphatase 102 (40-150) U/L Total Protein 6.8 (6.0-8.3) g/dL Albumin 3.3 (3.3-5.0) g/dL Urine Color Aria A (Yellow) Urine Appearance Clear (Clear) Urine pH 6.0 (5.0-8.5) Ur Specific [place] >= 1.030 (1.000-1.030) Urine Protein 1+ A (Negative) Urine Glucose (UA) Trace A (Negative) Urine Ketones 1+ A (Negative) Urine Blood Trace-intact A (Negative) Urine Nitrite Negative (Negative) Urine Bilirubin Negative (Negative) Urine Urobilinogen 0.2 (0.2-1.0) Ur Leukocyte Esterase Negative (Negative) Urine RBC 0-2 (0-2) Urine WBC 2-5 (0-5) Ur Squamous Epith Cells Few (None-Few) Urine Bacteria Moderate A (None) Urine Mucus Many A (None) Vaginal Trichomonas (None Seen) Vaginal Yeast (None Seen) Vaginal Clue Cells (None Seen) Urine Opiates Screen (Negative) Ur Oxycodone Screen (Negative) Urine Methadone Screen (Negative) Ur Barbiturates Screen (Negative) U Tricyclic Antidepress (Negative) Ur Phencyclidine Scrn (Negative) Ur Amphetamines Screen (Negative) U Methamphetamines Scrn (Negative) U Benzodiazepines Scrn (Negative) Urine Cocaine Screen (Negative) U Marijuana (THC) Screen (Negative) Ur Drug Screen Comment SARS-CoV-2 (PCR) (Negative) Influenza Type A (PCR) (Negative) Influenza Type B (PCR) (Negative) RSV (PCR) (Negative) Group A Strep DNA (Not Detectd) Lab Acknowledgement Assessment and Plan Assessment and plan (1) Fever of unknown origin: Status: Acute (2) 29 weeks gestation of : Status: Acute (3) Dehydration: Status: Acute (4) Marginal insertion of umbilical cord: Status: Acute (5) Tachycardia: Status: Acute (6) Antepartum tachycardia affecting care of mother: Status: Acute (7) Sepsis: Status: Acute (8) Major depressive disorder: Status: Acute (9) Generalized anxiety disorder: Status: Acute Plan Ms. Wallis is a 23yo at 29w1d GA admitted for fever of unknown origin. complicated by anemia, marginal cord insertion and mood disorder. She has had worsening maternal condition since admission, with temperature lability (T-max 103?, T Min 96.0) and evolving hypertension and tachycardia. On presentation, there was tachycardia but this has resolved with treatment of maternal fever. Sepsis protocol was initiated, she is status post 2 L of IV fluid resuscitation and started on Zosyn for empiric treatment of sepsis. Blood pressure was noted to improve, maintaining map goal of greater than equal to 65 without vasopressors. Infusion of norepinephrine is available if needed. Serial labs have noted leukocytosis to 22 with neutrophil predominance, otherwise WNL. Lactate of 1.6. Infectious workup including chest x-ray, abdominal ultrasound, urinalysis and wet prep were unremarkable. There is no signs/symptoms of chorioamnionitis at this time, given absent abdominal pain/contractions and entirely benign abdominal exam and bimanual exam. I recommend transfer of care for access to maternal ICU and NICU availability. Several facilities were contacted, ultimately [facility] in [place] is accepting. - Diligent BP monitoring, plan to start norepinephrine infusion en route to maintain MAP goal of >=65mmHg. MAP has been at/above goal for >1 hour prior to transfer. - Continue IVF at 125cc/hr (s/p 2L bolus) - Continuous monitoring, entirely stable/reassuring for several hours prior to transfer - Status post betamethasone #1 at about 1330 on 03/02 - Status post 1st dose of Zosyn Transfer to [facility] via air. Patient expressed understanding and is in agreement with plan. Family conference held with her partner as well. All questions answered.
--- NOTE | 2024-03-02 14:36 | PM.IMCN1 ---
Date of Consult Patient: [facility] Patient Consult date: 03/02/24 Requesting Physician: [facility] Primary Care Provider: Not a Local Provider Consult Narrative Narrative: Arti Wallis is a 23 year old female at 29 weeks gestation admitted to the hospital with fever and hypotension. 3 days ago on Thursday the patient reported onset of shaking chills/rigors. This lasted for up to an hour at which point she fell asleep. On Thursday she again had another prolonged episode of shaking chills/rigors. She reported fatigue and malaise but no other obvious symptoms of illness or infection. Again on Thursday she had shaking chills and felt feverish and was diaphoretic. At that point she also developed a headache. She checked her temperature and it was 99.8 F. she came the hospital labor and delivery for evaluation. Initial evaluation showed no obvious focus of infection. Chest x-ray, abdominal ultrasound, obstetric ultrasound and urinalysis were unremarkable. Urine cultures and blood cultures are pending. Testing for COVID influenza and RSV are negative. Strep test is negative. She had a fever to 103.0 F she was tachycardic with a pulse of 153. Initial blood pressure was 124/57 but then dropped overnight to as low as 65/41 this morning. She received IV fluids yesterday and then started on IV fluids again along with piperacillin tazobactam. Today she has had a total of 2 L of lactated Ringer's and 1 dose of Zosyn 3.375. She remains borderline hypotensive at the time I am called to consult. Patient reports feeling fine other than her fever and with that some fatigue and poor appetite. She had had a headache yesterday that is gone. She does not have a neck ache, congestion, sore throat, cough, dyspnea, chest pain, nausea, vomiting, abdominal pain, diarrhea, urinary frequency urgency or dysuria. She is not aware of any skin rash or other focus of pain. She reports that her baby remains active and kicking her frequently. She had a few uterine contractions on Thursday but none since that time. She has not had any vaginal discharge or bleeding. 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 She has had no recent travel. 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 She lives with her 1-year-old daughter and . Her is healthy but her 1-year-old daughter just developed a fever today. Her has been otherwise uncomplicated. She did have a ultrasound 2 months ago that showed a marginal cord insertion but repeat ultrasound was reassuring. Her only medications are vitamins. She has no known drug allergies. She does not smoke. Past medical history notable for history of depression and anxiety. Also history of iron deficiency anemia. [facility] Medical History Hx of iron deficiency anemia ?Z86.2 - Personal history of diseases of the blood and blood-forming organs and certain disorders involving the immune mechanism (ICD-10) Anemia ?D64.9 - Anemia, unspecified (ICD-10) Vaginal delivery ?O80 - Encounter for full-term uncomplicated delivery (ICD-10) Social History Smoking Status: Never smoker Little interest or pleasure in doing things: more than half the days Feeling down, depressed, or hopeless: more than half the days Meds Home Medications and Allergies Home Medications Medication Instructions Recorded Confirmed Type docosahexaenoic acid 200 mg mg PO 10/13/23 02/17/24 History capsule ( DHA) Allergies Allergy/AdvReac Type Severity Reaction Status Date / Time No Known Drug Allergies Allergy Verified 02/17/24 13:16 Exam Narrative: Exam Narrative: She is alert and appears in no distress. She gives her own history. She is pleasant and cooperative. She does not appear to be particularly anxious. Head is without trauma. Her cheeks are flushed with erythema but no other rashes noted. Her eyes are normal. Sclerae nonicteric. Oropharynx is normal. Neck is supple without mass or adenopathy. No tenderness. Respirations are clear to auscultation. Breathing is unlabored. Good air exchange all lung power. Cardiovascular: S1, S2, regular tachycardia. No murmur gallop or rub. Inspection of the breasts shows no significant erythema. She has no complaints of breast tenderness. Abdomen: Bowel sounds are present. Gravid uterus. Palpation around the abdomen shows no focus of tenderness. Other than a gravid uterus no other mass. External genitalia normal. Upper extremities are normal with good perfusion. Lower extremities also with good perfusion but feet are cool to touch. Skin is without evidence of rash. Const: Vital Signs, click to edit/add: Vital Signs - 24 hr 03/01/24 16:33 03/01/24 16:38 03/01/24 16:43 Temperature Pulse Rate Respiratory Rate Blood Pressure Pulse Oximetry 99 99 99 03/01/24 16:44 03/01/24 16:44 03/01/24 16:52 Temperature 99.4 F Pulse Rate 153 H Respiratory Rate 15 Blood Pressure 124/57 L Pulse Oximetry 98 03/01/24 16:57 03/01/24 17:02 03/01/24 17:07 Temperature Pulse Rate Respiratory Rate Blood Pressure Pulse Oximetry 98 98 98 03/01/24 17:12 03/01/24 18:19 03/01/24 18:59 Temperature 103.0 F H 102.7 F H Pulse Rate Respiratory Rate Blood Pressure Pulse Oximetry 98 03/01/24 19:17 03/01/24 20:25 03/01/24 22:48 Temperature 99.1 F 97.8 F Pulse Rate 116 H Respiratory Rate 18 Blood Pressure 94/61 Pulse Oximetry 97 99 03/02/24 00:06 03/02/24 03:42 03/02/24 05:37 Temperature 97.8 F 96.0 F L 96.1 F L Pulse Rate 77 Respiratory Rate 16 Blood Pressure 92/53 L Pulse Oximetry 97 03/02/24 07:38 03/02/24 07:39 03/02/24 07:44 Temperature Pulse Rate Respiratory Rate Blood Pressure Pulse Oximetry 90 98 98 03/02/24 07:49 03/02/24 07:54 03/02/24 07:58 Temperature 96.4 F L Pulse Rate 80 Respiratory Rate 18 Blood Pressure 93/50 L Pulse Oximetry 96 96 03/02/24 07:59 03/02/24 09:28 03/02/24 09:33 Temperature Pulse Rate Respiratory Rate Blood Pressure Pulse Oximetry 97 100 100 03/02/24 09:38 03/02/24 09:43 03/02/24 11:36 Temperature 97.6 F Pulse Rate Respiratory Rate 18 Blood Pressure Pulse Oximetry 100 100 03/02/24 11:38 03/02/24 11:42 03/02/24 11:44 Temperature Pulse Rate 95 92 93 Respiratory Rate Blood Pressure 65/41 L 73/49 L 81/53 L Pulse Oximetry 03/02/24 11:49 03/02/24 12:10 03/02/24 12:25 Temperature Pulse Rate 93 97 99 Respiratory Rate Blood Pressure 77/50 L 85/50 L 80/53 L Pulse Oximetry 03/02/24 12:26 03/02/24 12:31 03/02/24 12:40 Temperature Pulse Rate 101 H Respiratory Rate Blood Pressure 107/65 Pulse Oximetry 100 100 03/02/24 12:41 03/02/24 12:46 03/02/24 12:50 Temperature Pulse Rate 99 Respiratory Rate Blood Pressure 85/48 L Pulse Oximetry 100 100 03/02/24 12:51 03/02/24 12:56 03/02/24 13:00 Temperature Pulse Rate 114 H Respiratory Rate Blood Pressure 79/37 L Pulse Oximetry 100 100 03/02/24 13:01 03/02/24 13:06 03/02/24 13:10 Temperature Pulse Rate 94 Respiratory Rate Blood Pressure 82/43 L Pulse Oximetry 100 100 03/02/24 13:11 03/02/24 13:15 03/02/24 13:16 Temperature 98.4 F Pulse Rate Respiratory Rate 18 Blood Pressure Pulse Oximetry 100 100 03/02/24 13:18 03/02/24 13:21 03/02/24 13:23 Temperature Pulse Rate Respiratory Rate Blood Pressure Pulse Oximetry 91 96 90 03/02/24 13:26 03/02/24 13:31 03/02/24 13:32 Temperature Pulse Rate 95 110 H Respiratory Rate Blood Pressure 80/44 L 100/60 Pulse Oximetry 100 100 03/02/24 13:36 03/02/24 13:38 03/02/24 13:41 Temperature Pulse Rate 104 H Respiratory Rate Blood Pressure 95/52 L Pulse Oximetry 100 100 03/02/24 13:42 03/02/24 13:54 03/02/24 13:57 Temperature Pulse Rate 107 H 103 H 117 H Respiratory Rate Blood Pressure 100/55 L 98/57 L 99/57 L Pulse Oximetry 100 03/02/24 13:59 03/02/24 14:02 03/02/24 14:04 Temperature Pulse Rate 112 H Respiratory Rate Blood Pressure 95/50 L Pulse Oximetry 100 100 03/02/24 14:07 03/02/24 14:09 03/02/24 14:12 Temperature Pulse Rate 111 H 116 H Respiratory Rate Blood Pressure 98/53 L 102/51 L Pulse Oximetry 100 03/02/24 14:14 03/02/24 14:17 03/02/24 14:19 Temperature Pulse Rate 120 H Respiratory Rate Blood Pressure 100/51 L Pulse Oximetry 100 100 03/02/24 14:22 03/02/24 14:24 03/02/24 14:27 Temperature Pulse Rate 115 H 110 H Respiratory Rate Blood Pressure 104/58 L 109/53 L Pulse Oximetry 100 03/02/24 14:29 03/02/24 14:32 03/02/24 14:34 Temperature Pulse Rate 100 Respiratory Rate Blood Pressure 93/53 L Pulse Oximetry 100 100 Documenting provider has reviewed patient's vital signs: yes Labs Labs: Short CBC 03/01/24 03/02/24 03/02/24 Range/Units 17:12 00:50 07:58 WBC 15.62 H 22.65 H 21.22 H (4.50-11.00) K/uL Hgb 10.9 L 8.8 L 8.9 L (12.0-16.0) gm/dL Hct 35.7 28.7 L 29.3 L (33.0-51.0) % Plt Count 225 190 192 (140-440) K/uL BMP 03/01/24 03/02/24 17:12 07:58 Sodium 135 136 Potassium 3.7 3.2 L Chloride 110 106 Carbon Dioxide 20 23 BUN 5 3 L Creatinine 0.4 L 0.3 L Glucose 86 91 Calcium 8.4 8.5 Liver Function 03/01/24 03/02/24 Range/Units 17:12 07:58 Total Bilirubin 0.4 0.3 (0.1-1.5) mg/dL AST 19 17 (12-35) U/L ALT 13 11 (4-35) U/L Alkaline Phosphatase 102 88 (40-150) U/L Albumin 3.3 2.9 L (3.3-5.0) g/dL Urine 03/01/24 03/02/24 Range/Units 16:46 12:40 Urine Color Aria A Yellow (Yellow) Urine Appearance Clear Clear (Clear) Urine pH 6.0 6.0 (5.0-8.5) Ur Specific [place] >= 1.030 1.020 (1.000-1.030) Urine Protein 1+ A Negative (Negative) Urine Glucose (UA) Trace A Negative (Negative) Assessment and Plan Assessment and plan (1) Sepsis: Problem comment: Fever/rigors/tachycardia/hypotension/leukocytosis all suggest serious infection/sepsis. Patient has received 2 L of lactated Ringer's, 3.375 g of piperacillin tazobactam and appropriate evaluation for source of sepsis. Norepinephrine was planned as the patient was hypotensive but pressures have improved and so it has been held but available in anticipation of transfer for maternal and critical care. Status: Acute (2) Fever of unknown origin: Problem comment: Source of the fever is unclear. No obvious site of infection is identified on appropriate testing so far. Pending transfer for further evaluation is pending. Status: Acute (3) 29 weeks gestation of : Problem comment: By external monitoring the baby appears to be doing well at this stage. Not obviously in labor. Transfer for maternal and critical care. Status: Acute Plan 23-year-old female 2 para 1 at 29 weeks gestation with sepsis. Transfer for both maternal and critical care. Discussed with OBGYN stabilization interventions including fluids, antibiotics, monitoring, goals of care, and if necessary, norepinephrine. Total Time Spent Total Time Spent: 65 min critical care time
--- NOTE | 2024-03-12 12:04 | PC.OBNST ---
NST Note NST Note Start: 03/01/24 16:27 Freq: ONCE Status: Discharge Protocol: Document 03/02/24 00:26 [facility] (Rec: 03/02/24 07:08 [facility] [id number]) NST Note 2 Para (# of births) 1 EDC 05/17/24 Gestational Age In Weeks & Days 29 Weeks & 1 Days Patient Presented with Complaint(s) of Other Other Complaints Fever, chills, body aches, sore throat Reactive Yes Appropriate for Gestational Age Yes MARIOLA Marin, RN Date 03/02/24 Reactive Yes Appropriate for Gestational Age Yes MARIOLA Ballesteros RN Date 03/02/24 OB NST charge Yes Complete NST Note via Write Note Yes The provider's electronic signature indicates the NST is reactive/appropriate for gestational age. *Note to provider: If an addendum is required, open the patient's chart and click on the note under the Nurse/Allied Health tab.
--- NOTE | 2024-04-21 12:40 | PC.OBNST ---
NST Note NST Note Start: 03/01/24 16:27 Freq: ONCE Status: Discharge Protocol: Document 03/02/24 00:26 [facility] (Rec: 03/02/24 07:08 [facility] [id number]) NST Note 2 Para (# of births) 1 EDC 05/17/24 Gestational Age In Weeks & Days 29 Weeks & 1 Days Patient Presented with Complaint(s) of Other Other Complaints Fever, chills, body aches, sore throat Reactive Yes Appropriate for Gestational Age Yes MARIOLA Marin, RN Date 03/02/24 Reactive Yes Appropriate for Gestational Age Yes MARIOLA Ballesteros RN Date 03/02/24 OB NST charge Yes Complete NST Note via Write Note Yes The provider's electronic signature indicates the NST is reactive/appropriate for gestational age. *Note to provider: If an addendum is required, open the patient's chart and click on the note under the Nurse/Allied Health tab.
== END 2024-03-02 15:15 | disposition short-term general hospital (02) ==
LOC: OB OUT 16:23 → OB 16:23
PROVIDERS: Obstetrics & Gynecology; Visit Provider Advanced Practice Midwife
DX: O26.893 Other specified pregnancy related conditions, third trimester (principal); R50.9 Fever, unspecified; J02.9 Acute pharyngitis, unspecified; Z3A.29 29 weeks gestation of pregnancy
CPT/HCPCS: 36415; 51702; 59025; 71046; 76700; 76816; 76819; 80053; 80306; 81001; 81003; 83605; 85025; 87040; 87086; 87210; 87631; 87651; G0463; A9270; J0702; J2543; J7120

== ENCOUNTER 2024-03-22 14:55 | Outpatient (CLI) | payer MEDICAID, SELFPAY | END 2024-03-22 14:56 | disposition home or self-care (01) | LOC: NFLDREF 14:56 | PROVIDERS: Visit Provider Advanced Practice Midwife | DX: D64.9 Anemia, unspecified (principal) | CPT/HCPCS: 82728 ==

== ENCOUNTER 2024-04-08 10:30 | Outpatient (RCR) | payer MEDICAID, SELFPAY ==
--- NOTE | 2024-03-29 12:25 | URNOTE ---
Request received for authorization for Ferric Carboxymaltose (Injectafer)?([id number]). Prior authorization is not required per [place] (active) NO PA req per [facility] Fee schedule.
[2024-04-01 10:31] VITALS: BP 107/73; PULSE 115; RESP 16; TEMP 36.5; O2SAT 97
[2024-04-01] MEDS: FERRIC CARBOXYMALTOSE 750 MG in 0.9 % SODIUM CHLORIDE 250 ml 250 ML 530 MG IVPB (11:15)
[2024-04-01 11:49] VITALS: BP 106/66; PULSE 82; RESP 16; O2SAT 97
[2024-04-01 12:26] VITALS: BP 104/68; PULSE 96; RESP 16; TEMP 36.2; O2SAT 97
[2024-04-08 10:27] VITALS: BP 100/67; PULSE 100; RESP 16; TEMP 36.4; O2SAT 97
[2024-04-08] MEDS: FERRIC CARBOXYMALTOSE 750 MG in 0.9 % SODIUM CHLORIDE 250 ml 250 ML 550 MG IVPB (10:43)
[2024-04-08] MEDS: 0.9 % SODIUM CHLORIDE 250 ml IV (10:45)
[2024-04-08] MEDS: SODIUM CHLORIDE 0.9 % (FLUSH) 10 ML SYRINGE IVF (10:45)
[2024-04-08 11:18] VITALS: BP 105/68; PULSE 99; RESP 16; O2SAT 97
[2024-04-08 11:50] VITALS: BP 108/70; PULSE 101; RESP 16; O2SAT 99
== END 2024-09-28 23:59 | disposition home or self-care (01) ==
LOC: CCIC 10:30
PROVIDERS: Visit Provider Advanced Practice Midwife
DX: D50.9 Iron deficiency anemia, unspecified (principal)
CPT/HCPCS: 96365; J1439; J7050

== ENCOUNTER 2024-04-22 10:01 | Outpatient (CLI) | payer MEDICAID, SELFPAY ==
--- NOTE | 2024-04-22 10:15 | CRLHL7_ITS ---
For Patients: As a result of the Century Cures Act, medical imaging exams and procedure reports are released immediately into your electronic medical record. You may view this report before your referring provider. If you have questions, please contact your health care provider. INDICATION: marginal cord insertion COMPARISON: 03/02/2024 TECHNIQUE: Real time max scale imaging of the fetus was performed. Without non-stress testing. FINDINGS: Sonographic imaging demonstrates a single living intrauterine gestation. Fetus demonstrates a regular cardiac rate of 152 beats per minute. Fetus has a vertex position. The amniotic fluid volume appears normal and there is a single deepest pocket measurement of 3.7 cm. The fetus was active and demonstrated normal breathing movements. There was normal flexion and extension of the trunk and extremities. IMPRESSION: Normal biophysical profile score of 8 out of 8. Dictated by Markie Padilla MD @ 04/22/2024 11:45:00 AM (Electronically Signed)
== END 2024-04-22 10:02 | disposition home or self-care (01) ==
LOC: US 10:01
PROVIDERS: Visit Provider Advanced Practice Midwife
DX: O43.199 Other malformation of placenta, unspecified trimester (principal)
CPT/HCPCS: 76819; 87081; 87653

== ENCOUNTER 2024-05-02 14:20 | Outpatient (CLI) | payer MEDICAID, SELFPAY ==
--- NOTE | 2024-05-02 14:30 | CRLHL7_ITS ---
For Patients: As a result of the Century Cures Act, medical imaging exams and procedure reports are released immediately into your electronic medical record. You may view this report before your referring provider. If you have questions, please contact your health care provider. INDICATION: Third trimester scan, evaluate growth. Marginal cord insert. COMPARISON: 04/22/2024 TECHNIQUE: Real time max scale imaging of the fetus was performed. FINDINGS: Sonographic imaging demonstrates a single living intrauterine gestation. Fetus demonstrates a regular cardiac rate of 154 beats per minute. Fetus has a vertex position. The placenta lies left posterior. Amniotic fluid volume appears normal and there is a single deepest vertical pocket: 2.8 cm. The estimated weight is 3265gm which lies at the 56th %. On the prior OB ultrasound exam dated 03/01/2024 the estimated weight was at the 71st%. BPD 43rd percentile. HC 18th percentile. AC 87th percentile. FL 6th percentile the HC/AC ratio measures 0.94 range (0.92-1.05). IMPRESSION: Sonographic gestational age 37 weeks 1 day and sonographic due date 05/22/2024. Sonographic age 5 days behind the clinical age. Estimated weight at 56th percentile. Abdominal circumference 87th percentile. Dictated by Markie Padilla MD @ 05/02/2024 3:33:35 PM (Electronically Signed)
== END 2024-05-02 14:21 | disposition home or self-care (01) ==
PROVIDERS: Visit Provider Advanced Practice Midwife
DX: O43.193 Other malformation of placenta, third trimester (principal); Z3A.37 37 weeks gestation of pregnancy
CPT/HCPCS: 76816

== ENCOUNTER 2024-05-14 08:06 | Inpatient (IN) | payer MEDICAID, SELFPAY ==
[2024-05-14] VITALS (22 sets, daily range): BP systolic 102–125; BP diastolic 55–71; PULSE 75–109; RESP 16–18; TEMP 36.7–36.9; O2SAT 96–98; BMI 31.6
[2024-05-14] MEDS: LACTATED RINGERS 1000 ML 1,000 ML 125 ML IV (08:33)
[2024-05-14] MEDS: AMPICILLIN 2 GM in 0.9 % SODIUM CHLORIDE Mini-bag 100 ML IVPB (08:34)
--- NOTE | 2024-05-14 08:35 | W.PM.LDBA ---
Subjective History of Present Illness Time Seen by Provider: 08:15 Date Seen: 05/14/24 Narrative: Patient is being admitted to Labor and Delivery for spontaneous onset of labor at term. She is a 24 year old at weeks gestation. Her full history and physical was dictated by Veronica Trejo CNM on 04/27/2024. Please see this for details. Specific Issues/Plans G 2 P 1001 Does not want to know sex H&P done by [facility] on 04/27/2024 1. Closely spaced pregnancies. Vaginal delivery 01/12/2023. 2. Depression and anxiety. Stopped taking sertraline a couple of months ago. Does not desire to restart medication at this time. Feels that her mood is stable despite elevated PHQ and ДМИТРИЙ scores. Continues to see a therapist. Encouraged her to let us know if her mood symptoms are worsening. 3. Marginal cord insertion 0.9 cm from placental edge with placenta along the left wall and 2.1 cm from the internal os at 20 weeks. Repeat US for growth and reassessment of placenta at 29 weeks: EFW 71 % resolved low lying placenta, no previa BPP at 36 weeks: 88 NST weekly starting at 37 weeks. Growth at 37 weeks: EFW 56% 4. Anemia. Hgb 10.2 at 27 weeks. recommended oral iron, starting at 30 weeks. Hgb 8.8 with sepsis Repeat Hgb at 32wks: 5. Tx at 29 weeks for concern for Sepsis (Richard) with hypotension and fever. Sepsis ruled out and thought to be viral infection, was in ICU one night and one night on antepartum. 6. GBS + recommend abx in labor Flu: Recommended. Declines Covid: Recommended booster. Patient declines. TDAP:03/09/24 OB - Problem Based A/P Additional Plan (1) Encounter for supervision of other normal , third trimester: Status: Acute (2) Marginal insertion of umbilical cord affecting management of mother: Status: Acute (3) Anemia: Status: Acute (4) Major depressive disorder: Status: Acute (5) Generalized anxiety disorder: Status: Acute Plan ASSESSMENT:?? 24 at 39w4d weeks gestation?? complicated by:??Anemia, marginal cord insertion, illness of unknown etiology at 29w requiring hospitalization-resolved Labor type: Spontaneous, Active labor?? Category 1 FHR pattern.??? Labor complicated by: GBS +, prophylaxis initiated?? GBS positive? PLAN:?? 1. Routine intrapartum cares as ordered. Continue with expectant management?? 2. Monitoring per policy, intermittent?? 3. Planning unmedicated . Desires water . Consent signed. Hep C negative. Candidate for analgesia of choice.??? 4. Patient encouraged to reposition and ambulate to promote physiologic labor and .?? 5. GBS prophylaxis initiated for GBS positive status. Will treat with antibiotics per protocol.? 6. Anticipate ? Delivery/Labor/Induction Plan Plan: expectant management OB Result Labs Blood Type: B (+) positive Rubella: immune RPR/VDLR: nonreactive GBS Status: positive HBsAG: negative OB Exam Physical Exam Vital signs: Temp Pulse Resp BP Pulse Ox 98.2 F 96 16 105/63 96 05/14/24 07:35 05/14/24 07:35 05/14/24 07:35 05/14/24 07:35 05/14/24 07:34 Narrative: Vitals Reviewed Constitutional:? Alert and oriented x3 HEENT:? Normocephalic, atraumatic Lungs:? Clear to auscultation bilaterally Heart:? Regular rate and rhythm, no murmur, rub or gallop Abdomen:? Soft, nontender, and gravid. Vertex by Rajat's, confirmed with cervical exam by nurse. Extremities:? No edema or erythema Cervix: 4 cm/80%/-1 station/vertex NST: 130 bpm/moderate variability/+ accelerations/early decelerations occasionally/regular contractions every 3-4 minutes x80-90 seconds with adequate resting time between
[2024-05-14 08:50] LABS: Basophils Percent Auto 0.1 % (0.0-3.0); Eosinophils Percent Auto 0.3 % (0.0-7.0); Hematocrit 41.7 % (33.0-51.0); Immature Granulocytes Pct Auto 0.8 %; Lymphocytes Percent Auto 16.3 % (20-44); Mean Corpuscular HGB Conc 31 gm/dL (32-36); Mean Corpuscular Hemoglobin 27 pg (26-34); Mean Corpuscular Volume 87 fL (80-100); Monocytes Percent Auto 4.2 % (0.0-11.0); Neutrophils Percent Auto 78.3 % (42.0-72.0); Platelet Count* 181 K/uL (140-440); Red Blood Count 4.78 m/uL (4.00-5.20); Slide Review Reflex No; White Blood Count* 11.95 K/uL (4.50-11.00)
--- NOTE | 2024-05-14 10:01 | P.OBPN_ITS ---
Subjective Time Seen by Provider: 10:01 Date Seen: 05/14/24 Narrative: Arti is coping well with labor and states that things are slightly increasing in intensity. She feels the contractions low mid front abdominally. She promises to let us know when she starts to get more uncomfortable. She is considering a waterbirth, but may want an epidural. Her partner is supporting her at the bedside. Objective Exam: Objective: Constitutional: Alert and oriented x3, coping well Vital signs stable, see nurse documentation Abdomen: gravid, contractions palpate mild with contractions and soft between Cervix: 4 cm/80%/-1 station/vertex per nursing exam at 0735 NST: 130bpm with no audible decreases via intermittent monitoring Vital Signs: Last Vital Signs Temp 98.2 F 05/14/24 07:35 Pulse 80 05/14/24 09:20 Resp 16 05/14/24 07:35 BP 105/63 05/14/24 07:35 Pulse Ox 96 05/14/24 07:34 Contractions Monitor mode: Palpation Contraction pattern: Regular Contraction intensity: Mild Plan Plan: 24 at 39w4d weeks gestation?? complicated by:??Anemia, resolved infection at 29w, marginal cord insertion Labor type: Spontaneous, Early to Active labor?? Category 1 FHR pattern.??? Labor complicated by: none?? GBS positive? PLAN:?? 1. Routine intrapartum cares as ordered. Continue with expectant management?? 2. Monitoring per policy, intermittent?? 3. Planning unmedicated at this time. Candidate for waterbirth as desires. Candidate for analgesia of choice.??? 4. Patient encouraged to reposition and ambulate to promote physiologic labor a nd .?? 5. GBS prophylaxis initiated for GBS positive status. Will treat with antibiotics per protocol.?1st dose given at 0830. Will plan VE with consideration for AROM as indicated at 1230. 6. Anticipate ?
[2024-05-14] MEDS: AMPICILLIN 1 GM in 0.9 % SODIUM CHLORIDE Mini-bag 100 ML IVPB (12:30)
--- NOTE | 2024-05-14 12:59 | PM.OBPNL ---
Subjective Time Seen by Provider: 12:45 Date Seen: 05/14/24 Narrative: Arti has been coping very well with no physical sign of pain at all. She states the contractions have continued and gotten a little closer, but only with the slightest increase in pressure. Her second dose of ampicillin has been started. RN heard a decrease with the last contraction so has put Arti on continuous monitoring for the time being. Objective Exam: Objective: Constitutional: Alert and oriented x3, no distress, coping well Vital signs stable, see nurse documentation Abdomen: gravid, contractions palpate moderate with contractions and soft between contractions Cervix: 8 cm/80%/-1 station/vertex, BBOW with contraction, AROM with consent, clear fluid, small amount NST: 130 bpm/moderate variability/+accelerations/audible decrease in FHT to 117 bpm per RN during contraction, prior to ROM, so patient was put on continuous monitoring/ Potentially some decelerations currently at 1310, but unable to determine significance since contractions not yet tracing well. Monitor adjusted. Vital Signs: Last Vital Signs Temp 98.2 F 05/14/24 07:35 Pulse 77 05/14/24 12:28 Resp 16 05/14/24 07:35 BP 121/66 05/14/24 12:28 Pulse Ox 98 05/14/24 12:28 Plan Plan: ASSESSMENT:?? 24 at 39w4d weeks gestation?? complicated by:??Anemia, marginal cord insertion, illness of unknown etiology at 29w requiring hospitalization-resolved Labor type: Spontaneous, Active labor?? Category 1 FHR pattern.??? Labor complicated by: GBS +, prophylaxis initiated?? GBS positive?? PLAN:?? 1. Routine intrapartum cares as ordered. Continue with expectant management?? 2. Monitoring per policy, continuous or intermittent?as indicated.? 3. Planning unmedicated . tub being filled 4. Patient encouraged to reposition and ambulate to promote physiologic labor and .?? 5. Adequately treated for prophylaxis of GBS? 6. Anticipate ? ?
[2024-05-14] MEDS: OXYTOCIN 30 unit/500 ML in NS 30 UNIT/500 ML BAG 300 UNIT IVPB (14:40)
[2024-05-14] MEDS: LIDOCAINE 1 % PF 30 ML INJECTION (14:50)
--- NOTE | 2024-05-14 15:22 | W.PM.OBVAGDE ---
Documented by User: Rajani Watson CNM 05/14/24 15:52 OB Procedure Vag Delivery Mother Details Mother Details: The patient is a 24 year-old, 2, Para 2001 now, admitted on 05/14/24 at 39w4d gestation. she progressed spontaneously, without pain medication as desired and birthed in the tub. She was AROM'd with consent after adequate GBS prophylaxis administered at 8 cm dilation at 1254 with clear fluid. Patient was complete, assumed with spontaneous pushing at 1415. of a viable male at 1439 in hands and knees in the tub. Vertex delivered OA. No nuchal cord or shoulder. Body delivered easily and without incident. passed to fathers hands after anterior shoulder birthed and brought him to his mothers abdomen with a vigorous cry. Short umbilical cord prompted letting some water out of the tub, but it was decided to just get out of the tub. Moderate bleeding noted upon standing. Cord was clamped and cut at approx 4 minutes. APGARS were 8 at one minute and 9 at five minutes respectively. Intact placenta with a 3 vessel cord delivered spontaneously at 1445 with marginal cord insertion site noted. Fundus massaged to firmer with evacuation of some clots from posterior vagina and cervix. Some urine noted expressed with manual fundal pressure. 2nd degree vaginal laceration identified and repaired in typical fashion. EBL 300 cc. Mother and baby stable; mother plans to breastfeed. weight pending.? ? Admission Date: 05/14/24 Additional Details Heart: heart tones during second stage were [] Delivery Details Delivery Date: 05/14/24 Delivery Time: 14:45 Gender: Male 1 Minute Interval Total Score: 8 5 Minute Interval Total Score: 9 Additional Details Procedure Done: Global Laceration: Vaginal - 2nd Degree Episiotomy Description: None Blood Loss Measurement Type: EBL (300) Bakri Used: No Sponge/Need Count Correct: Yes Cord Vessel Description: 3 Vessels Event Summary Status: Mother and were stable after delivery. Documented by User: Desirae Ruano CNM 05/15/24 11:11 OB Procedure Vag Delivery Mother Details : 2 Para: 2 Weeks Gestation: 39.4 Additional Details Amniotic Membrane Rupture Date: 05/14/24 Amniotic Membrane Rupture Time: 12:54 Amniotic Membrane Fluid Description: Clear Analgesia/Anesthesia Type: None Waterbirth: Yes Complete: 14:15 (presumed with pushing) Pushin:15 Delivery Details Delivery Time: 14:39 Route of delivery: Viability: Alive; Heart Rate Present Additional Details Shoulder Dystocia: No Placenta Delivery Time: 14:45 Placental Delivery Description: Spontaneous Event Summary Disposition: floor
[2024-05-14] MEDS: IBUPROFEN 600 MG TABLET PO (18:33)
[2024-05-14] MEDS: BENZOCAINE/MENTHOL SPRAY 85 GM AEROSOL 1 APPLIC TOPICAL (18:34)
[2024-05-15 05:06] VITALS: BP 104/68; PULSE 87; RESP 16; TEMP 36.3; O2SAT 97
[2024-05-15 07:17] VITALS: BP 103/61; PULSE 88; RESP 16; TEMP 36.6; O2SAT 98
[2024-05-15 08:52] LABS: Hemoglobin* 11.1 gm/dL (12.0-16.0)
[2024-05-15] MEDS: DOCUSATE SODIUM 100 MG CAPSULE PO (09:45)
--- NOTE | 2024-05-15 11:40 | PM.OBDSVD1 ---
DS: Providers Provider Date Seen: 05/15/24 Date of admission: 05/14/24 08:06 Primary care physician: Not a Local Provider Admitting Clinician: Rajani Watson CNM Attending Physician on discharge: Veronica Trejo CNM Date of Discharge: 05/15/24 DS: Diagnosis Discharge Diagnosis (1) Lactating mother: Status: Acute (2) care following vaginal delivery: Status: Acute (3) Generalized anxiety disorder: Status: Acute (4) Major depressive disorder: Status: Acute Exam Narrative: Exam Narrative: GENERAL APPEARANCE:? normal affect, alert, no distress? MOOD:? appropriate? CHEST:? clear to auscultation and percussion? HEART:? regular rate and rhythm? ABDOMEN:? soft, non-tender the uterine fundus is U/2 and is appropriate for the stage of recovery.? PERINEUM:? mild edema of the perineum, there is a 2nd degree vaginal laceration that is healing well.? EXTREMITIES:? normal and no edema? Const: Vital Signs, click to edit/add: Vital Signs - 24 hr 05/14/24 11:45 05/14/24 12:28 05/14/24 12:45 Temperature Pulse Rate 80 77 75 Pulse Rate [Pulse Oximeter] Respiratory Rate Blood Pressure 121/66 Blood Pressure [Le ft Arm] Pulse Oximetry 98 Oxygen Delivery [facility] 05/14/24 13:45 05/14/24 13:45 05/14/24 13:46 Temperature 98.1 F Pulse Rate 80 85 Pulse Rate [Pulse Oximeter] Respiratory Rate 16 Blood Pressure 102/66 Blood Pressure [Le ft Arm] Pulse Oximetry 98 Oxygen Delivery [facility] 05/14/24 14:15 05/14/24 14:49 05/14/24 15:00 Temperature 98.5 F Pulse Rate 80 94 Pulse Rate [Pulse Oximeter] Respiratory Rate Blood Pressure 125/59 L Blood Pressure [Le ft Arm] Pulse Oximetry Oxygen Delivery [facility] 05/14/24 15:03 05/14/24 15:18 05/14/24 15:33 Temperature Pulse Rate 90 102 H 100 Pulse Rate [Pulse Oximeter] Respiratory Rate Blood Pressure 110/55 L 116/55 L 102/56 L Blood Pressure [Le ft Arm] Pulse Oximetry Oxygen Delivery [facility] 05/14/24 15:48 05/14/24 16:03 05/14/24 16:18 Temperature Pulse Rate 102 H 100 102 H Pulse Rate [Pulse Oximeter] Respiratory Rate Blood Pressure 106/58 L 105/61 106/62 Blood Pressure [Le ft Arm] Pulse Oximetry Oxygen Delivery Me thod 05/14/24 16:33 05/14/24 16:51 05/14/24 19:18 Temperature 98.4 F Pulse Rate 100 105 H Pulse Rate [Pulse Oximeter] 109 H Respiratory Rate 18 Blood Pressure 106/57 L 114/71 Blood Pressure [Le ft Arm] 105/70 Pulse Oximetry 97 Oxygen Delivery Me thod Room Air 05/14/24 23:43 05/15/24 05:06 05/15/24 07:17 Temperature 98.1 F 97.4 F L 97.9 F Pulse Rate Pulse Rate [Pulse Oximeter] 98 87 88 Respiratory Rate 16 16 16 Blood Pressure Blood Pressure [Le ft Arm] 102/68 104/68 103/61 Pulse Oximetry 96 97 98 Oxygen Delivery Me thod Room Air Room Air Room Air OB - DS: Summary Hospital Course Hospital Course: Daniella is a 24 year old G 2 P 2 at 39.4 weeks gestation that was admitted to the Center on 05/14/24 for active labor. She had an uncomplicated vaginal delivery. She delivered a viable male infant. She is breast feeding, pumping and supplementing with formula per her choice. She feels baby is latching ok but favoring the left side. Encouraged her to work on the latch before discharge. the patient has done well. Her pain is well controlled with current medications.? She has no new complaints.? Urinary output is adequate and she is voiding without difficulty.? Has a good appetite, is tolerating a general diet, is passing flatus, and has not had a bowel movement.? Has small amount of rubra lochia.? She is ambulating well. She is planning an IUD for contraception. She is requesting discharge after 24 hours of life and is aware that if she changes her mind and decided to stay another night that her discharge order can be canceled. She declines ibuprofen or Colace prescriptions be sent to her pharmacy stating that she hasn't used any ibuprofen since yesterday and has both at time available if she needs them. Encouraged a stool softener 1-2 times a day to prevent constipation. She can take 400-600mg of OTC ibuprofen and/or OTC Tylenol PRN for pain. Peripartum Data Infant delivery method: Vaginal Laceration description: Vaginal - 2nd Degree Episiotomy description: None complications: none [place] Gender: Male Infant Discharge Plan: Home Status at Discharge Functional status at discharge: independent ambulation Overall status at discharge: patient is progressing back to baseline Time Spent with Patient Time attestation: Total time spent providing and/or coordinating discharge services: Discharge Plan Discharge Disposition: Home, Self-Care Date of Admission: 05/14/24 08:06 Primary Care Provider: Provider,Not a Local Condition: Stable Anticipated Discharge Date/Time: 05/15/24 16:00 Discharge Medications: Continued DHA 200 mg capsule PO Discharge Orders: Discharge Order (Routine); Ordered 05/15/24 Ordered By: Desirae Ruano Patient Education: OB Vaginal/Breast Feeding Additional Instructions: Discharge instructions were reviewed with the patient including signs and symptoms of infection and home going medications.?? Off Work or School for 6 weeks.? ?? Symptoms to report to doctor:? -Bleeding that saturates more than one pad per hour? -Passing clots larger than the size of a golf ball? -Pain not relieved by prescribed medication? -Fever above 100.4 degrees Fahrenheit? -A foul vaginal odor? -Difficulty in emotions, mood and functions? -Thoughts of hurting yourself and/or ? -Painful, reddened area in your breast? -Any drainage, redness or tenderness in your IV/epidural site? -Severe headache that doesn't improve after taking medications? -Changes in vision, including temporary loss of vision, blurred vision, and/or light sensitivity? -Upper abdominal pain (usually under ribs on the right side)? -Decrease in urination or painful, frequent urinating? -Chest pain? -Shortness of breath? -Tenderness or pain with redness and/swelling in the calf(s) of your leg? ?? Follow Up in clinic in 2 and 6 weeks.? ?? consultation services are available to all mothers and babies for the first year after delivery.? To make an appointment, please call [phone].? Activity Level: Activity as Tolerated Discharge Diet: Regular Follow Up Appointments: [facility] [Provider Group] Provider,Not a Local [Primary Care Provider] - Forms: MyHealth Info Instructions
[2024-05-15 13:19] VITALS: BP 105/68; RESP 16; TEMP 36.7; O2SAT 97
[2024-05-15] MEDS: BENZOCAINE/MENTHOL SPRAY 85 GM AEROSOL 1 APPLIC TOPICAL (16:45)
[2024-05-16 00:55] LABS: Rapid Plasma Reagin (RPR) Non Reactive (Non Reactive)
== END 2024-05-15 17:10 | disposition home or self-care (01) | DRG 807 ==
LOC: OB OUT 08:07 → OB 08:07
PROVIDERS: Midwife; Admitting Provider Advanced Practice Midwife; Visit Provider Advanced Practice Midwife
DX: O70.1 Second degree perineal laceration during delivery (principal); Z37.0 Single live birth; O99.344 Other mental disorders complicating childbirth; F41.1 Generalized anxiety disorder; F32.A Depression, unspecified; O99.02 Anemia complicating childbirth; D64.9 Anemia, unspecified; O99.824 Streptococcus B carrier state complicating childbirth; O43.193 Other malformation of placenta, third trimester; Z3A.39 39 weeks gestation of pregnancy; O99.013 Anemia complicating pregnancy, third trimester
CPT/HCPCS: 36415; 85018; 85025; 86592; 86850; 86900; 86901; A9270; J0290; J2001; J7120

== ENCOUNTER 2025-05-04 13:06 | Outpatient (CLI) | payer MEDICAID, SELFPAY ==
[2025-05-04 17:59] LABS: Chlamydia DNA Amplified* NOT DETECTED (No Detected); GC DNA Amplified* NOT DETECTED (No Detected)
[2025-05-04 21:40] LABS: Bacterial Vaginosis* POSITIVE (Negative); Candida glab/krus NOT DETECTED (No Detected)
== END 2025-05-04 13:07 | disposition home or self-care (01) ==
PROVIDERS: Visit Provider Registered Nurse
DX: Z11.3 Encounter for screening for infections with a predominantly sexual mode of transmission (principal); Z11.4 Encounter for screening for human immunodeficiency virus [HIV]; Z11.51 Encounter for screening for human papillomavirus (HPV); Z11.59 Encounter for screening for other viral diseases
CPT/HCPCS: 80061; 81513; 86592; 86703; 86803; 87340; 87481; 87491; 87591; 87661